=== PATIENT | male | born 1980 | race Caucasian/White ===

== ENCOUNTER 2020-08-01 21:47 | Emergency (ER) | payer SELFPAY ==
[~2020-08-01] VITALS: Ht 167.6 cm; Wt 69.4 kg
[2020-08-01 22:20] VITALS: BP 113/62
[2020-08-01] MEDS ORDERED: NAPROXEN 250 MG TABLET ONE (22:41)
--- NOTE | 2020-08-01 22:44 | NUR ---
Patient discharged to home in stable condition. Written and verbal after care instructions given. Patient verbalizes understanding of instruction. Pt ambulatory with a steady gait
[2020-08-01] MEDS ORDERED: NAPROXEN 500 MG TABLET PO SCH (23:00)
== END 2020-08-01 22:50 | disposition home or self-care (01) ==
LOC: ER 21:54
DX: G89.29 Other chronic pain (principal); M79.622 Pain in left upper arm